=== PATIENT | male | born 1955 | race Caucasian/White ===

== ENCOUNTER 2016-08-07 15:59 | Inpatient (IN) ==
--- NOTE | 2016-08-07 17:52 | Emergency Department Note ---
Disposition Clinical Impression: Transient cerebral ischemia Disposition: Admitted As Inpatient Referrals: Shankar Quiros MD [Primary Care Provider] - Forms: ED Satisfaction Letter Neuro HPI - General Chief Complaint: ED Neuro Symptoms/Deficit Stated Complaint: neuro symptoms LKW 08/03 Time Seen by Provider: 08/07/16 17:29 Source: patient, family Nursing Notes Reviewed: Yes Vital Signs Reviewed: Yes - History of Present Illness HPI Narrative: Presents for complaint of slurred speech and confusion. Symptoms started about 3 days ago after getting off work. Patient has chest pain denies dizziness. Patient denies prior history of similar symptoms. notes that he came home from work which seems confused and went to sleep a great deal. He appears to have had these intermittent episodes of confusion and slurred speech over the past 2 days. Patient was seen at outside hospital 3 days ago had a workup performed that was negative. There is a reported numbness and tingling patient has been eating and drinking well. No report of vision difficulties - Related Data Allergies/Adverse Reactions: Allergies Allergy/AdvReac Type Severity Reaction Status Date / Time Penicillins Allergy Anaphylaxis Verified 08/07/16 18:05 All systems ED: reviewed and negative except as stated. Past Medical History - Past Medical History Source: patient Medical history: Reports: diabetes, hyperlipidemia, hypertension - Social History Smoking Status: Never smoker Alcohol use: Reports: none Drug use: Reports: none Physical Exam - General Limitations: no limitations General appearance: alert, in no apparent distress - Head Head exam: atraumatic, normocephalic, normal inspection - Eye Eye exam: Present: normal appearance, PERRL, EOMI - ENT ENT exam: normal exam, normal oropharynx - Neck Neck exam: Present: normal inspection, full ROM, trachea midline - Chest Chest inspection: Present: normal inspection, symmetric chest wall rise - Respiratory Respiratory exam: Present: normal lung sounds bilaterally - Cardiovascular Cardiovascular exam: Present: regular rate, normal rhythm, normal heart sounds - Abdominal Exam Abdominal exam: Present: soft, Non-Tender. Absent: tenderness, distention, guarding, rebound, rigidity - Extremities Exam Extremities exam: Present: normal inspection, full ROM. Absent: tenderness, pedal edema - Back Exam Back exam: Present: normal inspection, full ROM. Absent: tenderness - Neurological Exam Neurological exam: Present: alert, oriented X3, other (Upper and left lower extremity weakness when compared to the right otherwise normal) - Psychiatric Psychiatric exam: Present: normal affect, normal mood - Skin Skin exam: Present: warm, dry, intact, normal color Course Vital Signs Temperature 98.7 F 08/07/16 16:33 Pulse Rate 100 08/07/16 16:33 Respiratory Rate 20 08/07/16 16:33 Blood Pressure 119/83 08/07/16 16:33 O2 Sat by Pulse Oximetry 96 08/07/16 16:33 Temperature 98.7 F 08/07/16 16:33 Pulse Rate 96 08/07/16 19:06 Respiratory Rate 18 08/07/16 19:06 Blood Pressure 132/93 08/07/16 19:06 O2 Sat by Pulse Oximetry 96 08/07/16 19:06 Oxygen Delivery Oxygen Delivery Room Air Neuro Symptoms/Deficit - MDM Narrative Medical decision making narrative: 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 Neurology recommends admission with MRI/MRA and neurology follow-up. - Differential Diagnosis Likely: cerebrovascular accident, transient cerebral ischemia - Lab Data Lab results reviewed: Yes I reviewed the patient's lab results. Result diagrams: 08/07/16 18:22 08/07/16 18:22 Lab Results 08/07/16 08/07/16 08/07/16 Range/Units 18:06 18:22 18:22 WBC 8.5 (4.3-11.1) K/mcL RBC 5.18 (4.19-5.50) M/mcL Hgb 16.3 (12.9-16.9) g/dL Hct 45.8 (37.5-50.1) % MCV 88.4 (83.0-100.0) fL MCH 31.5 (28.0-33.3) pg MCHC 35.6 H (31.6-35.5) g/dL RDW 12.2 (11.5-14.5) % Plt Count 245 (140-400) K/mcL MPV 10.9 (9.4-12.4) fL Immature Gran % 0.5 (0-4) % Seg Neutrophils % 53.9 % Lymphocytes % 32.0 % Monocytes % 9.6 % Eosinophils % 2.9 % Basophils % 1.1 % Neutrophils # 4.6 (1.6-8.9) K/mcL Lymphocytes # 2.7 (0.6-4.6) K/mcL Monocytes # 0.8 (0.0-1.3) K/mcL Eosinophils # 0.3 (0.0-0.6) K/mcL Basophils # 0.1 (0.0-0.2) K/mcL APTT 31.2 (26.0-36.0) Seconds Sodium (136-145) mEq/L Potassium (3.5-4.5) mEq/L Chloride (98-109) mEq/L Carbon Dioxide (19-29) mEq/L BUN (8-26) mg/dL Creatinine (0.72-1.25) mg/dL Est GFR ( Amer) (> 60) Est GFR (Non-Af Amer) (> 60) BUN/Creatinine Ratio (6-26) Glucose (70-99) mg/dL Calculated Osmolality (280-300) Calcium (8.6-10.8) mg/dL Total Bilirubin (0.2-1.2) mg/dL AST (5-34) Units/L ALT (0-55) Units/L Alkaline Phosphatase (38-126) Units/L Ammonia (18-72) mcmol/L Troponin I (0-0.03) ng/mL Serum Total Protein (6.0-8.3) g/dL Albumin (3.5-5.0) g/dL Globulin (2.4-3.5) g/dL Albumin/Globulin Ratio (1.1-2.2) Urine Color Yellow (Yellow) Urine Clarity Clear (Clear) Urine pH 5.5 (5.0-8.0) pH Units Ur Specific [place] 1.027 H (1.010-1.025) Urine Protein Negative (Neg-Trace) mg/dL Urine Glucose (UA) >=1000 H (Normal) mg/dL Urine Ketones Negative (Negative) mg/dL Urine Blood Negative (Negative) Urine Nitrite Negative (Negative) Urine Bilirubin Negative (Negative) Urine Urobilinogen Normal (Normal) mg/dL Ur Leukocyte Esterase Negative (Negative) Ur Culture Indicated? NO (NO) 08/07/16 08/07/16 08/07/16 Range/Units 18:22 18:22 18:22 WBC (4.3-11.1) K/mcL RBC (4.19-5.50) M/mcL Hgb (12.9-16.9) g/dL Hct (37.5-50.1) % MCV (83.0-100.0) fL MCH (28.0-33.3) pg MCHC (31.6-35.5) g/dL RDW (11.5-14.5) % Plt Count (140-400) K/mcL MPV (9.4-12.4) fL Immature Gran % (0-4) % Seg Neutrophils % % Lymphocytes % % Monocytes % % Eosinophils % % Basophils % % Neutrophils # (1.6-8.9) K/mcL Lymphocytes # (0.6-4.6) K/mcL Monocytes # (0.0-1.3) K/mcL Eosinophils # (0.0-0.6) K/mcL Basophils # (0.0-0.2) K/mcL APTT (26.0-36.0) Seconds Sodium 137 (136-145) mEq/L Potassium 3.7 (3.5-4.5) mEq/L Chloride 104 (98-109) mEq/L Carbon Dioxide 24 (19-29) mEq/L BUN 18 (8-26) mg/dL Creatinine 0.86 (0.72-1.25) mg/dL Est GFR ( Amer) > 60 (> 60) Est GFR (Non-Af Amer) > 60 (> 60) BUN/Creatinine Ratio 21 (6-26) Glucose 102 H (70-99) mg/dL Calculated Osmolality 286 (280-300) Calcium 9.0 (8.6-10.8) mg/dL Total Bilirubin 0.5 (0.2-1.2) mg/dL AST 31 (5-34) Units/L ALT 48 (0-55) Units/L Alkaline Phosphatase 69 (38-126) Units/L Ammonia 38 (18-72) mcmol/L Troponin I 0.00 (0-0.03) ng/mL Serum Total Protein 7.5 (6.0-8.3) g/dL Albumin 3.7 (3.5-5.0) g/dL Globulin 3.8 H (2.4-3.5) g/dL Albumin/Globulin Ratio 1.0 L (1.1-2.2) Urine Color (Yellow) Urine Clarity (Clear) Urine pH (5.0-8.0) pH Units Ur Specific [place] (1.010-1.025) Urine Protein (Neg-Trace) mg/dL Urine Glucose (UA) (Normal) mg/dL Urine Ketones (Negative) mg/dL Urine Blood (Negative) Urine Nitrite (Negative) Urine Bilirubin (Negative) Urine Urobilinogen (Normal) mg/dL Ur Leukocyte Esterase (Negative) Ur Culture Indicated? (NO) - Radiology Data Radiology results reviewed: Yes I reviewed the patient's radiology results. Chest X-Ray 08/07/16 18:14 IMPRESSION: No acute process. D/ / Roly Bhardwaj MD / Roly Bhardwaj MD Interpreting Provider: Roly Bhardwaj MD - EKG Data EKG attestation: Yes I reviewed and interpreted this EKG. EKG shows normal: sinus rhythm Rate: normal Rhythm: NSR TPA Checklist - LKW: 3-4.5 hrs Add. Contraindications Patient/family understanding: The patient/family members have been counseled and understood the risk, benefit , and alternatives of treatment.
[2016-08-07 18:28] LABS: Bilirubin,Urine Negative (Negative); Blood,Urine Negative (Negative); Clarity,Urine Clear (Clear); Color,Urine Yellow (Yellow); Glucose,Urine (UA) >=1000 mg/dL (Normal); Ketones,Urine Negative (Negative); Leukocyte Esterase,Urine Negative (Negative); Nitrite,Urine Negative (Negative); PH,Urine 5.5 pH Units (5.0-8.0); Protein,Urine Negative (Neg-Trace); Specific Gravity,Urine 1.027 (1.010-1.025); Urobilinogen,Urine Normal (Normal)
[2016-08-07 18:41] LABS: Basophils # 0.1 K/mcL (0.0-0.2); Basophils % 1.1 %; Eosinophils # 0.3 K/mcL (0.0-0.6); Eosinophils % 2.9 %; Hematocrit 45.8 % (37.5-50.1); Hemoglobin 16.3 g/dL (12.9-16.9); Immature Granulocytes % 0.5 % (0-4); Lymphocytes # 2.7 K/mcL (0.6-4.6); Mean Corpuscular HGB Conc 35.6 g/dL (31.6-35.5); Mean Corpuscular Hemoglobin 31.5 pg (28.0-33.3); Mean Corpuscular Volume 88.4 fL (83.0-100.0); Mean Platelet Volume 10.9 fL (9.4-12.4); Monocytes # 0.8 K/mcL (0.0-1.3); Monocytes % 9.6 %; Neutrophils # 4.6 K/mcL (1.6-8.9); Platelet Count 245 K/mcL (140-400); Red Blood Count 5.18 M/mcL (4.19-5.50); Red Cell Distribution Width 12.2 % (11.5-14.5); Segmented Neutrophils % 53.9 %
[2016-08-07 18:57] LABS: Alanine Aminotransferase 48 Units/L (0-55); Albumin 3.7 g/dL (3.5-5.0); Alkaline Phosphatase 69 Units/L (38-126); Aspartate Amino Transferase 31 Units/L (5-34); BUN/Creatinine Ratio 21 (6-26); Bilirubin,Total 0.5 mg/dL (0.2-1.2); Blood Urea Nitrogen 18 mg/dL (8-26); Carbon Dioxide 24 mEq/L (19-29); Chloride 104 mEq/L (98-109); Globulin 3.8 g/dL (2.4-3.5); Glucose 102 mg/dL (70-99); Osmolality,Calculated 286 (280-300); Potassium 3.7 mEq/L (3.5-4.5); Sodium 137 mEq/L (136-145); Total Protein 7.5 g/dL (6.0-8.3); eGFR For African Americans > 60 (> 60); eGFR For Non-African Americans > 60 (> 60)
--- NOTE | 2016-08-07 21:34 | Internal Med History&Physical ---
Date of Encounter: 08/07/16 Time of Encounter: 21:28 Assessment and Plan (1) Diabetes mellitus type 2 in obese Current visit: Yes Status: Acute Sliding scale insulin. Mentioned that his last hemoglobin A-1 C one or 2 months ago 7.5 (2) Hypertension Current visit: Yes Status: Acute Whole blood pressure medications allow for permissive hypertension. Qualifiers: Qualified Code(s): I10 - Essential (primary) hypertension (3) Forgetfulness Current visit: Yes Status: Acute May need evaluation biannual psychiatrist. We will check TSH free T4 B12 folic acid and RPR (4) Transient cerebral ischemia Current visit: Yes Status: Acute MRI of the brain will be performed in a.m. Continue NIH stroke scale. Check echocardiogram carotid Doppler physical therapy evaluation. Qualifiers: Qualified Code(s): G45.9 - Transient cerebral ischemic attack, unspecified Internal Medicine - H&P: HPI Chief complaint: slurred speech History of present illness: Mr. Baumann is a 61 year old male with a past medical history of diabetes mellitus, hypertension, dyslipidemia, increased forgetfulness recently presents to the emergency room today because of concern of slurring of speech. 3 days ago patient started noticing that he is more sleepy, tired and was told that he was occasionally confused. 3 days ago he went to an outside emergency room workup was performed including a head CT scan and laboratory workup which was un -revealing. Today patient's noted that he has been having intermittent slurring of his speech. There was slight left-sided weakness reported therefore patient presented to our facility for further evaluation. CT scan of the head showed no evidence of stroke or bleed. He denies any fevers or chills. No coughing expectoration diarrhea or urinary symptoms. 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 Past Med Surg Social Fam HX - Past Medical History Medical history: diabetes, hyperlipidemia, hypertension - Social History Smoking Status: Former smoker Packs per day: 1.5/2 Smokeless Tobacco Status: No Alcohol use: none Drug use: none - Family History Brother Living Status: Cause of : heart failure Hx Family Cardiac Disorders: Yes Internal Medicine - H&P: Meds Aspirin [Lo-Dose Aspirin EC] 81 mg PO DAILY 08/07/16 [History] Canagliflozin [Invokana] 300 mg PO DAILY 08/07/16 [History] Celecoxib [Celebrex] 200 mg PO DAILY 08/07/16 [History] Diltiazem HCl 240 mg PO DAILY 08/07/16 [History] Duloxetine HCl 60 mg PO BID 08/07/16 [History] Furosemide [Lasix] 40 mg PO DAILY 08/07/16 [History] Gabapentin [Neurontin] 600 mg PO QID 08/07/16 [History] Glimepiride [Amaryl] 4 mg PO DAILY 08/07/16 [History] Liraglutide [Victoza 3-Misael] 1.8 mg SQ DAILY 08/07/16 [History] Lisinopril [Zestril] 20 mg PO DAILY 08/07/16 [History] Memantine HCl 10 mg PO BID 08/07/16 [History] [place]-3 Acid Ethyl Esters [Lovaza] 2 cap PO BID 08/07/16 [History] Pregabalin [Lyrica] 75 mg PO TID 08/07/16 [History] Allergies Penicillins Allergy (Verified 08/07/16 18:05) Anaphylaxis All Systems PM: A 10-system review of systems was performed and is negative for pertinent findings except as documented above in the HPI. Review of systems: 10. ROS is negative except for HPI - Constitutional Vitals: Temp Pulse Resp BP Pulse Ox 98.7 F 96 18 143/98 96 08/07/16 16:33 08/07/16 19:06 08/07/16 19:32 08/07/16 19:32 08/07/16 19:06 Exam: Gen.: patient is alert oriented not in distress. Cardiac: Normal S1 S2 no additional sounds or murmurs chest: clear to auscultation abdomen soft nontender nondistended normal bowel sounds lower extremity: lax calf muscles neuro slight left arm drift compared to right. Otherwise unremarkable exam. Internal Med - H&P Results - Labs CBC & Chem 7: 08/07/16 18:22 08/07/16 18:22
[2016-08-08 04:31] LABS: C-Reactive Protein 16 mg/L (Less than 5); Creatine Kinase 77 Units/L (30-200)
[2016-08-08 05:05] LABS: Folate 13.1 ng/mL (7.0-31.4)
[2016-08-08] MEDS: *HR* Heparin 5,000 UNIT/ML VIAL SQ SCH ×2 (06:07→17:39)
[2016-08-08] MEDS: Aspirin Enteric Coated 81 MG Tablet PO SCH (08:42)
[2016-08-08] MEDS: Pregabalin 75 MG CAPSULE PO SCH ×3 (08:43→22:06)
[2016-08-08] MEDS: Insulin LISPRO 300 UNITS/3 ML VIAL SQ SCH ×3 (08:43→17:39)
--- NOTE | 2016-08-08 14:17 | Internal Med Progress Note ---
Date of Encounter: 08/08/16 Time of Encounter: 13:30 - Assessment and plan (1) Transient cerebral ischemia Current Visit: Yes Status: Acute Assessment and plan: Patient stating he still feels slightly weak but states his slurred speech has resolved. No focal neurological weakness is noted on examination. PT surmised he had no needs. Neurology consultation pending. Carotid ultrasound, echocardiogram, and MRI all still pending. Chest x-ray negative. Urinalysis negative. Awaiting results of the pending tests prior to disposition. Possible discharge early tomorrow morning pending clinical outcomes. ITS Impressions Chest X-Ray 08/07/16 18:14 IMPRESSION: No acute process. D/ / Roly Bhardwaj MD / Roly Bhardwaj MD Interpreting Provider: Roly Bhardwaj MD Qualifiers: Qualified Code(s): G45.9 - Transient cerebral ischemic attack, unspecified (2) Diabetes mellitus type 2 in obese Current Visit: Yes Status: Chronic Assessment and plan: Appears relatively well-controlled, will check A1c in the a.m. and continue sliding scale while admitted (3) Forgetfulness Current Visit: Yes Status: Chronic (4) Hypertension Current Visit: Yes Status: Chronic Assessment and plan: Controlled, we will continue to trend and adjust medications as indicated. (5) Morbid obesity with BMI of 45.0-49.9, adult Current Visit: Yes Status: Chronic - Subjective Interval history: Patient seen and examined. On examination, patient's sitting upright in bed watching television and conversing with his . Patient stating he still feels slightly weak but states his slurred speech has resolved. - Constitutional Vitals: Temp Pulse Resp BP Pulse Ox 97.3 F L 90 15 129/84 94 L 08/08/16 10:52 08/08/16 10:52 08/08/16 10:52 08/08/16 10:52 08/08/16 10:52 General appearance: Present: A&O X 3, pleasant, no acute distress, answers questions appropriately - Head Head exam: Present: atraumatic, normocephalic - Eye Eye exam: Present: PERRL, conjuntiva pink, sclera anicteric Pupils: Present: PERRL - Neck Neck exam general surgery: Present: supple, trachea midline. Absent: lymphadenopathy - Respiratory Respiratory exam: Present: CTAB. Absent: accessory muscle use, rales, respiratory distress, rhonchi, wheezes - Cardiovascular Cardiovascular exam: Present: RRR, +S1, +S2. Absent: diastolic murmur, gallop, rubs, systolic murmur - GI/Abdominal GI/Abdominal exam: Present: normal bowel sounds, soft, no peritoneal signs. Absent: distended, tenderness - Extremities Exam Extremities exam: Present: warm, radial pulses palpable and symetrical. Absent : calf tenderness, cyanotic, pedal edema - Neurological Exam Neurological exam: Present: alert, CN II-XII intact, normal gait, oriented X3, no focal deficits, strengths equal and symetr throughout. Absent: pronater drift, facial droop, speech deficit - Skin Skin exam: Present: dry, intact, normal color, warm Internal Medicine: Result - Labs CBC & Chem 7: 08/07/16 18:22 08/07/16 18:22 Consult Discharge Plan - Plan Referrals: Shankar Quiros MD [Primary Care Provider] -
--- NOTE | 2016-08-08 18:43 | Neurology - Consult Note ---
Date of Encounter: 08/08/16 Time of Encounter: 18:40 Assessment and Plan (1) Forgetfulness Current Visit: Yes Status: Chronic Certainly one would wish to rule out the possibility of a transient ischemic event, however true he does have stroke risk factors however. His neurologic examination is completely normal. Localizing findings are conspicuously absent. MRI scan of the brain was normal, however carotid duplex Doppler study and echocardiogram are yet pending. If the remainder of the stroke workup is normal, I would recommend increasing his aspirin to 325 mg daily. I will reevaluate him at your request. I do not feel that the type of physical therapy occupational therapy will be necessary. Certainly stress management will be of importance. History of Present Illness HPI: Mr. Baumann is a 61 year old male who is being seen for neurologic consultation secondary to strokelike symptoms. He states that 3 days prior to being admitted he went to work and recall sitting at his workstation, turn on his computer and felt acutely confused. He states that he could not figure out what he was supposed to do. He denied any weakness at that time denied headache denied any acute visual changes denied numbness or paresthesias. He states that he went back home and slept for most of the day. He slept excessively for the following 2 or 3 days. His states that he seemed to be walking around in the days, bumping into things. He admits that he has a tremendous amount of stress at work. He also has stroke risk factors however including diabetes and hypertension dyslipidemia. Upon admission MRI scan of the brain was obtained which was negative for evidence of acute ischemia. Carotid duplex Doppler study and echocardiogram are yet pending. He does take aspirin 81 mg daily. Past Med Surg Social Fam HX - Past Medical History Medical history: diabetes, hyperlipidemia, hypertension - Social History Smoking Status: Former smoker Packs per day: 1.5/2 Smokeless Tobacco Status: No Alcohol use: none Drug use: none - Family History Brother Living Status: Cause of : heart failure Hx Family Cardiac Disorders: Yes Medications and Allergies Aspirin [Lo-Dose Aspirin EC] 81 mg PO DAILY 08/07/16 [History] Canagliflozin [Invokana] 300 mg PO DAILY 08/07/16 [History] Celecoxib [Celebrex] 200 mg PO DAILY 08/07/16 [History] Diltiazem HCl 240 mg PO DAILY 08/07/16 [History] Duloxetine HCl 60 mg PO BID 08/07/16 [History] Furosemide [Lasix] 40 mg PO DAILY 08/07/16 [History] Gabapentin [Neurontin] 600 mg PO QID 08/07/16 [History] Glimepiride [Amaryl] 4 mg PO DAILY 08/07/16 [History] Liraglutide [Victoza 3-Misael] 1.8 mg SQ DAILY 08/07/16 [History] Lisinopril [Zestril] 20 mg PO DAILY 08/07/16 [History] Memantine HCl 10 mg PO BID 08/07/16 [History] [place]-3 Acid Ethyl Esters [Lovaza] 2 cap PO BID 08/07/16 [History] Pregabalin [Lyrica] 75 mg PO TID 08/07/16 [History] Allergies Penicillins Allergy (Verified 08/07/16 18:05) Anaphylaxis All Systems: A 10-system review of systems was performed and is negative for pertinent findings except as documented above in the HPI. Review of Systems: A 10 point review of systems is consistent with the history of present illness, and otherwise negative. Physical Examination - Vital Signs Vital Signs: Initial Vital Signs Temp Pulse Resp BP Pulse Ox 98.7 F 100 20 119/83 96 08/07/16 16:33 08/07/16 16:33 08/07/16 16:33 08/07/16 16:33 08/07/16 16:33 - Neurologic Detailed motor examination: full strength in all major muscle groups Motor examination - right side: 5/5: deltoids, biceps, triceps, wrist flexion, wrist extension, stock broker supervisor, hip flexors, tibialis Anterior, quadriceps, toe extension (EHL), plantarflexion Motor examination - left side: 5/5: deltoids, biceps, triceps, wrist flexion, wrist extension, hip flexors, stock broker supervisor, quadriceps, tibialis Anterior, toe extension (EHL), plantarflexion Mental Status Examination: awake, alert, oriented to person, oriented to place, oriented to time, follows commands appropriately, answers questions appropriately, no agnosia, no aphasia, no aproxia Cranial nerve examination: PERRL, EOMI, visual fabian intact, corneal reflexes brisk symmetrically, sensory to face intact, mastication intact, no facial asymmetry is present, no dysarthria, hearing is intact symmetrically, soft palate elevates bilaterally upon phonation, gag reflex intact, flexes SCM and trapezius muscles symmetrically with full power, tongue protrudes midline, no atrophy or facial fasiculations present Cerebellar examination: no dysmetria, performs finger to nose and heel to sullivan symmetrically without ataxia, no gait ataxia, no truncal ataxia, no difficulty with rapid alternating movements Results - Laboratory Findings CBC and BMP: 08/07/16 18:22 08/07/16 18:22 Abnormal lab findings: Abnormal lab results MCHC 35.6 g/dL (31.6-35.5) H 08/07/16 18:22 Glucose 102 mg/dL (70-99) H 08/07/16 18:22 POC Glucose 150 (58-89) H 08/08/16 16:19 C-Reactive Protein 16 mg/L (Less than 5) H 08/08/16 03:59 Globulin 3.8 g/dL (2.4-3.5) H 08/07/16 18:22 Albumin/Globulin Ratio 1.0 (1.1-2.2) L 08/07/16 18:22 Vitamin B12 1082 pg/mL (213-816) H 08/08/16 03:59 Ur Specific [place] 1.027 (1.010-1.025) H 08/07/16 18:06 Urine Glucose (UA) >=1000 mg/dL (Normal) H 08/07/16 18:06 Consult Discharge Plan - Plan Referrals: Shankar Quiros MD [Primary Care Provider] -
--- NOTE | 2016-08-08 19:42 | Electrocardiograph Report ---
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
[2016-08-08] MEDS ORDERED: Gabapentin 400 MG CAPSULE PO ONE (22:26)
[2016-08-09 06:09] LABS: Hemoglobin A1C 7.1 %
[2016-08-09] MEDS: Insulin LISPRO 300 UNITS/3 ML VIAL SQ SCH ×2 (07:54→12:20)
--- NOTE | 2016-08-09 07:58 | ECHO - Doppler Report ---
Echo with Saline Contrast Name: River Baumann Date of Study: 08/08/2016 Date: 1955 Ht: 69.0 in Medical Record#: [id number] Age: 61 Wt: 314.0 lb Gender: Male BSA: 2.5 Order #: [id number] Location: [facility] Room #: 3B37 Reading Physician: Rubens Shah MD, [facility] Paint Supervisor: Kalpana Agudelo Ordering Physician: Arthur Coffey MD Primary Physician: Shankar Quiros, Indications: TIA Impressions: Normal left ventricular size and systolic function, LVEF 60%. Mild left ventricular diastolic dysfunction. Normal right ventricular size and function. No significant valvular dysfunction. No evidence of pulmonary hypertension. Agitated saline contrast study was attempted, but was of inadequate quality to assess for intracardiac shunting. Left Ventricular Wall Motion: Rest Echo Findings All wall segments showed normal motion. Findings: Study Quality * Suboptimal echo windows. * Technical review: saline contrast study. ECG Findings * Normal sinus rhythm. Left Ventricle * Normal left ventricular size and systolic function, LVEF 60%. * Normal LV wall thickness. * Mild left ventricular diastolic dysfunction. Right Ventricle * Normal right ventricular size and function. Left Atrium * Normal left atrial size. Right Atrium * Normal right atrial size. Interatrial Septum * Agitated saline contrast study was attempted, but was of inadequate quality to assess for intracardiac shunting. Aorta * Normally sized aortic root. Pericardium * There is no pericardial effusion present. IVC * The IVC is not well evaluated. Tricuspid Valve * Tricuspid valve not well visualized. * No tricuspid stenosis. * Trace tricuspid regurgitation. * No evidence of pulmonary hypertension. Pulmonic Valve * Pulmonic valve is not well visualized. * No pulmonic stenosis. * No pulmonic regurgitation. Aortic Valve * Trileaflet aortic valve. * No aortic stenosis. * No aortic regurgitation. Mitral Valve * Normal mitral valve structure. * No mitral stenosis. * Trace mitral regurgitation. History Hypertension Diabetes Hypercholesteremia Family History of CAD Congestive Heart Failure Measurements: BP: 129/ 84 2D Normal Values RVIDd: 3.60 cm IVSd: 1.00 cm 0.6 - 1.0 cm LVIDd: 4.80 cm 3.7 - 5.6 cm LVPWd: 1.00 cm 0.6 - 1.1 cm LVIDs: 3.10 cm 1.5 - 3.6 cm AO: 2.90 cm < 4.0 cm %FS: 35.40 cm >25 % LA volume: 25 Mitral Valve Peak E:.84 m/sec Peak A:1.01 m/sec E/A Ratio:0.8 Peak E' Lat Donal:7.41 cm/s Peak E' Med Donal:5.75 cm/s E/E' Lat Ratio:11.3 E/E' Med Ratio:14.6 Tricuspid Valve TV Regurg Peak Grad: 19.00mmHg TV Regurg Peak Donal: 2.20m/sec Updated by Rubens Shah MD, [facility] on 08/09/2016 7:50:55 AM electronically signed on 08/09/2016 7:52:17 AM with status of Final Wall Motion [place]: 1=Normal, 2=Hypokinesis, 3=Akinesis, 4=Dyskinesis, 5=Aneurysmal, 6=Hyperkinetic, X=Not Visualized (Blank)=Missing
[2016-08-09] MEDS: *HR* Heparin 5,000 UNIT/ML VIAL SQ SCH (08:06)
[2016-08-09] MEDS: Pregabalin 75 MG CAPSULE PO SCH (08:06)
[2016-08-09] MEDS: Aspirin Enteric Coated 81 MG Tablet PO SCH (08:06)
[2016-08-09 11:48] VITALS: BP 148/84
--- NOTE | 2016-08-09 12:41 | Discharge Summary ---
Date of Encounter: 08/09/16 Time of Encounter: 10:30 - Discharge Diagnosis (1) Transient cerebral ischemia Priority: Primary Status: Resolved Comments: Patient remained asymptomatic throughout this admission. Speech fluid. No focal neurological weaknesses. Stroke workup negative for acute processes. Neurology cleared him for outpatient follow-up. (2) Diabetes mellitus type 2 in obese Priority: Secondary Status: Chronic Comments: Controlled on with an A1c of 7.1%, recommend continued follow-up outpatient. (3) Forgetfulness Priority: Secondary Status: Chronic (4) Hypertension Priority: Secondary Status: Chronic Comments: Borderline hypertensive at time of discharge however his home dose of lisinopril was not continued, recommend continue follow up outpatient with daily blood pressure checks at home. Qualifiers: Hypertension type: essential hypertension Qualified Code(s): I10 - Essential (primary) hypertension (5) Morbid obesity with BMI of 45.0-49.9, adult Priority: Secondary Status: Chronic - Discharge Medications Prescriptions: Atorvastatin Calcium [Lipitor] 20 mg PO HS #30 tablet Home Medications: Canagliflozin [Invokana] 300 mg PO DAILY 08/07/16 [History] Celecoxib [Celebrex] 200 mg PO DAILY 08/07/16 [History] Diltiazem HCl 240 mg PO DAILY 08/07/16 [History] Duloxetine HCl 60 mg PO BID 08/07/16 [History] Furosemide [Lasix] 40 mg PO DAILY 08/07/16 [History] Gabapentin [Neurontin] 600 mg PO QID 08/07/16 [History] Glimepiride [Amaryl] 4 mg PO DAILY 08/07/16 [History] Liraglutide [Victoza 3-Misael] 1.8 mg SQ DAILY 08/07/16 [History] Lisinopril [Zestril] 20 mg PO DAILY 08/07/16 [History] Memantine HCl 10 mg PO BID 08/07/16 [History] Lincoln-3 Acid Ethyl Esters [Lovaza] 2 cap PO BID 08/07/16 [History] Pregabalin [Lyrica] 75 mg PO BID 08/07/16 [History] Aspirin 325 mg PO DAILY 08/09/16 [History] Atorvastatin Calcium [Lipitor] 20 mg PO HS #30 tablet 08/09/16 [Rx] Metformin HCl 1,000 mg PO BID 08/09/16 [History] Allergies/Adverse Reactions: Allergies Penicillins Allergy (Verified 08/09/16 09:52) Anaphylaxis childhood reaction Date of admission: 08/08/16 11:00 Primary care physician: Shankar Quiros MD Consults: 08/07/16 18:58 Consult to Neurology [CONS] Stat Consulting Provider: [facility] Reason for Consult: TIA Call Completed: Yes 08/07/16 21:20 Consult to Occupational Therapy [CONS] Routine Comment: Evaluate, develop and implement POC Consult to Physical Therapy [CONS] Routine Comment: Evaluate, develop and implement POC Discharging clinician: Kimmie Myers Anticipated date of discharge: 08/09/16 - Patient Status Disposition: Home, Self-Care Condition: Good Functional capacity at discharge: independent ambulation Overall status at discharge: patient is back to baseline - Discharge Instructions Follow Up With: Shankar Quiros MD [Primary Care Provider] - Additional Instructions: Follow-up appointments: Follow-up with primary care provider within one to 2 weeks If there is not an appointment listed below, please call your physician and schedule a follow-up appointment. If you have congestive heart failure and your symptoms return, make an appointment with your physician. Symptoms: If your condition changes or you experience any of the following symptoms, notify your physician immediately: Unusual or worsening pain, fever, persistent nausea and vomiting, bleeding, increase in swelling (especially in your legs), sudden weight gain, extreme dizziness, chest pain, increased drainage or redness from a wound or incision. Go to the emergency department if you experience a problem with breathing. Weights: If you have a history of swelling or shortness of breath, weigh yourself daily and notify your physician if you have a weight gain of two or more pounds in one day or 5 or more pounds in a week. If you experience any of the warning signs for stroke: Sudden numbness or weakness of the face, arm or leg; especially on one side of the body, sudden confusion, trouble speaking or understanding, sudden trouble seeing in one or both eyes, sudden trouble walking, dizziness, loss of balance or coordination, sudden sever headache with no cause; Call 911 or go to the emergency room. Stroke is a medical emergency. Some risk factors for stroke: Age, cigarette smoking, diabetes, excessive alcohol consumption, family history , high blood pressure, overweight, physical inactivity, prior stroke, heart attack, diagnosis of carotid artery stenosis or other artery disease. If you smoke, STOP: Smoking or tobacco use significantly increases your risk of heart and lung disease. Your chance of disease greatly increases if you continue to smoke. For more information, call the [place] tobacco quit line for smoking cessation - QUIT-NOW ( ) - Diet and Activity Activity: increase activity as tolerated Diet: diabetic diet, low salt diet Hospital course: Mr. Baumann is a 61 year old male with past medical history of diet-controlled diabetes, hypertension, hyperlipidemia, former heavy tobacco abuse, and history of increased forgetfulness at home. Patient presented to the emergency department chief complaint slurred speech 3 days. Patient also endorses increased sleepiness, fatigue, and occasional confusion. Patient went to an outside emergency department 3 days prior to presentation where a head CT and routine laboratory workup was unremarkable and he was discharged home. On the day of presentation, the patient's noted that he had been having intermittent slurring of his speech associated with left-sided weakness prompting his presentation to the emergency department. Workup in the emergency department unremarkable. Chest x-ray negative. Head CT negative. The patient was admitted to the hospitalist service for further evaluation and management. Urinalysis negative. The patient was asymptomatic throughout this admission. Speech was fluid. No focal neurological weaknesses. Physical therapy examined him and surmised he had no needs. Neurology was brought on board to clear him for outpatient follow-up. Echocardiogram and carotid ultrasound unremarkable. Regarding risk factor modification, he is on full strength aspirin each neurology recommended he continue. He was also started on a statin. Blood pressure was relatively well controlled and he was instructed to check his blood pressure daily at home, keep a log, and follow-up outpatient. He was discharged home in stable condition with close outpatient follow-up recommended. ITS Impressions Chest X-Ray 08/07/16 18:14 IMPRESSION: No acute process. D/ / Roly Bhardwaj MD / Roly Bhardwaj MD Interpreting Provider: Roly Bhardwaj MD Brain MRI 08/07/16 21:20 IMPRESSION: 1. No evidence of an acute infarct. 2. Trace chronic microvascular white matter ischemic disease is noted supratentorially. D/ / 08/08/2016 16:14:50 Luis Fernando Barreto MD / normaay Interpreting Provider: Luis Fernando Barreto MD 08/09/16 11:29 - [id number] : 1955 Patient Age: 61 Carotid ultrasound appears to show bilateral carotids within normal limits per Kalpana Agudelo. Echocardiogram with saline contrast impressions: Normal left ventricular size and systolic function, LVEF 60%. Mild left ventricular diastolic dysfunction. Normal right ventricular size and function. No significant valvular dysfunction. No evidence of pulmonary hypertension. Agitated saline contrast study was attempted, but was of inadequate quality to assess for intracardiac shunting. - Time Spent with Patient Total time spent providing and/or coordinating discharge services: - Constitutional Vitals: Temp Pulse Resp BP Pulse Ox 97.7 F 93 15 148/84 95 08/09/16 11:46 08/09/16 11:46 08/09/16 11:46 08/09/16 11:46 08/09/16 11:46 General appearance: Present: A&O X 3, morbidly obese, pleasant, no acute distress, answers questions appropriately - Head Head exam: Present: atraumatic, normocephalic - Eye Eye exam: Present: PERRL, conjuntiva pink, sclera anicteric Pupils: Present: PERRL - Neck Neck exam general surgery: Present: supple, trachea midline. Absent: lymphadenopathy - Respiratory Respiratory exam: Present: CTAB. Absent: accessory muscle use, rales, respiratory distress, rhonchi, wheezes - Cardiovascular Cardiovascular exam: Present: RRR, +S1, +S2. Absent: diastolic murmur, gallop, rubs, systolic murmur - GI/Abdominal GI/Abdominal exam: Present: normal bowel sounds, soft, no peritoneal signs. Absent: distended, tenderness - Extremities Exam Extremities exam: Present: warm, radial pulses palpable and symetrical. Absent : calf tenderness, cyanotic, pedal edema - Neurological Exam Neurological exam: Present: alert, CN II-XII intact, normal gait, oriented X3, no focal deficits, strengths equal and symetr throughout. Absent: pronater drift, facial droop, speech deficit - Skin Skin exam: Present: dry, intact, normal color, warm
--- NOTE | 2016-08-09 16:47 | Carotid Imaging Report ---
Carotid Duplex Patient Name:River Baumann Order Number:[id number] Procedure Date:08/08/2016 Date:1955ge:61 yrs Gender:Male Lt BP:121 / 79 mmHg Rt.BP:129 / 84 mmHgHeart Rate: Location:[facility] Room #: 3B37 Referral And Information Aide:Kalpana Agudelo Referring MD:Arthur Coffey MD jewel inspector:Ryanne Suazo MD:Aditya Cheatham MD Primary Indications:TIA Risk Factors Yes/No Hypertension Yes Diabetes Yes Hypercholesterolemia Yes Impressions: The bilateral carotid arteries are normal throughout. Recommendations: After imaging the patient returned to their room. Findings Carotid Duplex: Gaines scale imaging combined with Doppler flow analysis suggests normal findings bilaterally. Right: The right proximal common carotid artery has a PSV of 97 cm/s and a EDV of 23 cm/s. The right mid common carotid artery has a PSV of 92 cm/s and a EDV of 22 cm/s. The right distal common carotid artery has a PSV of 85 cm/s and a EDV of 14 cm/s. The right bifurcation has a PSV of 60 cm/s and a EDV of 17 cm/s. The right proximal internal carotid artery has a PSV of 61 cm/s and a EDV of 23 cm/s. The right mid internal carotid artery has a PSV of 70 cm/s and a EDV of 29 cm/s. The right distal internal carotid artery has a PSV of 80 cm/s and a EDV of 25 cm/s. The right eca has a PSV of 86 cm/s and a EDV of 16 cm/s. The right vertebral artery has a PSV of 69 cm/s and a EDV of 13 cm/s. Left: The left proximal common carotid artery has a PSV of 92 cm/s and a EDV of 25 cm/s. The left mid common carotid artery has a PSV of 88 cm/s and a EDV of 26 cm/s. The left distal common carotid artery has a PSV of 82 cm/s and a EDV of 24 cm/s. The left bifurcation has a PSV of 60 cm/s and a EDV of 17 cm/s. The left proximal internal carotid artery has a PSV of 64 cm/s and a EDV of 29 cm/s. The left mid internal carotid artery has a PSV of 84 cm/s and a EDV of 34 cm/s. The left distal internal carotid artery has a PSV of 93 cm/s and a EDV of 31 cm/s. The left eca has a PSV of 62 cm/s and a EDV of 10 cm/s. The left vertebral artery has a PSV of 50 cm/s and a EDV of 12 cm/s. Prior Study: No prior study available for comparison. Carotid Results Right PSV EDV Assessment Proximal CCA 97 23 Normal Mid CCA 92 22 Normal Distal CCA 85 14 Normal Bifurcation 60 17 Normal Proximal ICA 61 23 Normal Mid ICA 70 29 Normal Distal ICA 80 25 Normal ECA 86 16 Normal Vertebral Artery 69 13 Normal Left PSV EDV Assessment Proximal CCA 92 25 Normal Mid CCA 88 26 Normal Distal CCA 82 24 Normal Bifurcation 60 17 Normal Proximal ICA 64 29 Normal Mid ICA 84 34 Normal Distal ICA 93 31 Normal ECA 62 10 Normal Vertebral Artery 50 12 Normal Ratio's Right ICA/CCA Ratio: 0.87 ICA/CCA Values: 80/92 Left ICA/CCA Ratio: 1.06 ICA/CCA Values: 93/88 Updated by Aditya Cheatham MD on 08/09/2016 4:42:03 PM electronically signed on 08/09/2016 4:42:14 PM with status of Final
[2016-08-11 11:27] LABS: Free T4 byEquilibrium Dialysis 1.9 ng/dL (1.1-2.4)
== END 2016-08-09 13:35 | disposition home or self-care (01) | DRG 69 ==
LOC: 3BNU 15:59 → EMEROO 15:59 → 3BNU 20:00
PROVIDERS: ADMIT Internal Medicine; ATTEND Nurse Practitioner Family